=== PATIENT | female | born 1930 | race Caucasian/White ===

== ENCOUNTER 2016-11-22 10:35 | Outpatient (CLI) | payer MEDICARE, OTHER ==
[2015-12-07 08:18] VITALS: BP 164/81
--- NOTE | 2016-11-23 01:32 | Diagnostic Imaging Report ---
ELMA CALVERT~ [facility] [address] [facility] [address] [address] ~ ~ ~ ~ Report Submission Date: Nov 22, 2016 3:30:32 PM CDT Patient ~ Study Name: Kishore DELGADO ~ Date: Nov 22, 2016 10:54:07 AM CDT ~ Modality Type: CR Gender: F ~ Description: LOWER EXTREMITY : 32 ~ Institution: [facility] Physician: ELMA CALVERT ~ ~ ~ ~ Right knee two views HISTORY: ~ 2 weeks of knee pain FINDINGS: ~ Femorotibial chondrocalcinosis and a moderate suprapatellar joint effusion are observed. ~There is no significant spurring, fracture, or focal bone lesion. IMPRESSION: ~ Joint effusion and chondrocalcinosis. ~ Electronically signed on Nov 22, 2016 3:30:32 PM CDT by: Ricky MILES
--- NOTE | 2016-11-23 01:33 | Diagnostic Imaging Report ---
ELMA CALVERT~ [facility] [address] [facility] [address] [address] ~ ~ ~ ~ Report Submission Date: Nov 22, 2016 3:31:19 PM CDT Patient ~ Study Name: Kishore DELGADO ~ Date: Nov 22, 2016 10:48:29 AM CDT ~ Modality Type: CR Gender: F ~ Description: PELVIS : 32 ~ Institution: [facility] Physician: ELMA CALVERT ~ ~ ~ ~ Right hip two views HISTORY: ~ Tears of hip pain FINDINGS: ~ The right hip is unremarkable without fracture, dislocation, arthropathy, or focal bone lesion. ~ Electronically signed on Nov 22, 2016 3:31:19 PM CDT by: Ricky MILES
== END 2016-11-22 10:36 ==
LOC: RAD 10:35
PROVIDERS: ATTEND Physician Assistant
DX: M25.551 Pain in right hip (principal); M25.561 Pain in right knee
CPT/HCPCS: 73502; 73560

== ENCOUNTER 2017-05-18 13:36 | Emergency (ER) | payer MEDICARE, OTHER ==
--- NOTE | 2017-05-18 14:00 | ED Physician Documentation ---
General Adult - HISTORIAN Historian: patient - HPI Stated Complaint: L foot pain Chief Complaint: General Adult Onset: days ago Timing: still present Severity: moderate Further Comments: yes (Pt is an 86 yo female who stubbed her L foot several days ago on a trip to [place]. Later she began to feel pain over the lateral metatarsals and through to the bottom of her foot. Pt notes that she did a lot of walking after stubbing her foot, in airport terminals.) - ROS CONST: no problems EYES/ENT: none CVS/RESP: none GI/: none MS/SKIN/LYMPH: other (L foot pain) - PAST HX Past History: other (Appendectomy, Hysterectomy, Ortho surg, Bladder sling, L eye surgery, cataracs) Allergies/Adverse Reactions: Allergies Allergy/AdvReac Type Severity Reaction Status Date / Time ciprofloxacin [From Cipro] AdvReac Intermediate Hives Verified 05/18/17 14:08 ciprofloxacin HCl AdvReac Intermediate Hives Verified 05/18/17 14:08 [From Cipro] - SOCIAL HX Smoking History: non-smoker - FAMILY HX Family History: No - VITAL SIGNS Vital Signs: Vital Signs Temp Pulse Resp BP Pulse Ox 164/81 12/06/15 15:45 - REVIEWED ASSESSMENTS Nursing Assessment Reviewed: Yes Vitals Reviewed: Yes Progress - Progress Progress: X-ray L foot - no fx pt declined ortho shoe, pain meds. Pt will use Tylenol/Ibuprofen. General Adult Physical Exam - PHYSICAL EXAM GENERAL APPEARANCE: mild distress NECK: normal inspection, supple RESPIRATORY: no resp distress, chest non-tender, breath sounds normal CVS: reg rate & rhythm, heart sounds normal SKIN: warm/dry, normal color EXTREMITIES: other (tenderness L foot metacarpels 4 & 5, no swelling or skin changes. ) NEURO: oriented X3, motor nml, sensation nml Discharge Clincal Impression: Foot pain, left Referrals: Neville Nixon MD [Primary Care Provider] - Condition: Good Disposition: 01 HOME, SELF-CARE Decision to Admit: NO Decision Time: 15:03
--- NOTE | 2017-05-18 14:52 | Diagnostic Imaging Report ---
[facility] [address] [address] Report Submission Date: May 18, 2017 2:30:54 PM CDT Patient Study Name: Kishore DELGADO Date: May 18, 2017 2:03:08 PM CDT Modality Type: CR Gender: F Description: LOWER EXTREMITY : 34 Institution: [facility] Physician: OLENA GRANADO - ER 3 views of the left foot Clinical history: Left foot pain Findings: No acute fracture dislocation is identified. The bones are osteopenic. No cortical destruction or periosteal reaction is identified. Impression: Osteopenia Electronically signed on May 18, 2017 2:30:54 PM CDT by: Amadou MILES
[2017-05-18 15:12] VITALS: BP 169/71
== END 2017-05-18 15:10 | disposition home or self-care (01) ==
LOC: ED 13:36
DX: M79.672 Pain in left foot (principal)
CPT/HCPCS: 73630; 99283

== ENCOUNTER 2018-09-17 16:46 | Outpatient (CLI) | payer MEDICARE, OTHER ==
--- NOTE | 2018-09-17 19:11 | Diagnostic Imaging Report ---
JASPER CHACKO [facility] [address] [facility] [address] [address] Report Submission Date: Sep 17, 2018 5:18:11 PM PRODUCTION OPERATIONS ENGINEER Patient Study Name: VIANEY DELGADO Date: Sep 17, 2018 4:52:01 PM PRODUCTION OPERATIONS ENGINEER Modality Type: DX Gender: F Description: UPPER EXTREMITY : 32 Institution: [facility] Physician: JASPER CHACKO Right elbow, three views. History: Elbow pain following fall. Findings: The osseous structures are intact without acute fracture pre. There is degenerative changes within the elbow. There is no joint effusion or soft tissue swelling. Impression: 1. No acute osseous abnormality. 2. Degenerative change. Electronically signed on Sep 17, 2018 5:18:11 PM PRODUCTION OPERATIONS ENGINEER by: Celso MILES
== END 2018-09-17 16:48 ==
LOC: RAD 16:46
PROVIDERS: ATTEND Family Medicine
DX: M24.121 Other articular cartilage disorders, right elbow (principal); M25.521 Pain in right elbow
CPT/HCPCS: 73080

== ENCOUNTER 2018-11-24 13:39 | Outpatient (CLI) | payer MEDICARE, OTHER ==
--- NOTE | 2018-11-24 15:39 | Diagnostic Imaging Report ---
JASPER CHACKO [facility] [address] [address] [address] Report Submission Date: Nov 24, 2018 3:06:00 PM CDT Patient Study Name: VIANEY DELGADO Date: Nov 24, 2018 1:47:11 PM CDT Modality Type: DX Gender: F Description: FOOT 3 VIEWS OR MORE : 34 Institution: [facility] Physician: JASPER CHACKO Examination: Plain film left foot History: DROPPED 3 LBS OF MARTINEZ ON FOOT Findings: 3 views of the left foot demonstrates osteopenia. Articular degenerative changes. No fracture or dislocation. No soft tissue swelling. No joint effusion. Impression: Osteopenia and degenerative changes. No displaced fracture lucency. Electronically signed on Nov 24, 2018 3:06:00 PM CDT by: Vern MILES
== END 2018-11-24 14:00 ==
LOC: RAD 13:39
PROVIDERS: ATTEND Family Medicine
DX: M85.872 Other specified disorders of bone density and structure, left ankle and foot (principal); M79.672 Pain in left foot
CPT/HCPCS: 73630